=== PATIENT | female | born 1950 | race Caucasian/White ===

== ENCOUNTER → 2017-04-20 | Outpatient (CLI) | payer BC ==
[2014-04-08 10:18] VITALS: BP 104/55
[~2017-04-20] MED LIST: CALC-104 PO; CELE200C PO; CICL6.1H5 NS; CITA40TA5 PO; ERGO400T PO; ESOM40CA PO; ESZO3TAB28 PO; LUBI24CA7 PO; MONT10TA9 PO; OXYC-323 PO; PRAS25CA PO; PRAVASTATIN; PROG200C2 PO; ROPI0.5T PO; TRAZ50TA15 PO; WARF-78 PO; [UNRECOGNIZED DRUG - OTHER]
--- NOTE | 2017-04-20 14:45 | KCIC ---
Indication: Chronic sinusitis with congestion and drainage. Axial imaging through the paranasal sinuses was performed without contrast. Sagittal and coronal reformations were also performed. One or more of the following individualized dose reduction techniques were utilized for this examination: 1. Automated exposure control 2. Adjustment of the mA and/or kV according to patient size 3. Use of iterative reconstruction technique Comparison is made with prior CT from 09/06/2014. Shallow air-fluid levels are identified within bilateral maxillary sinuses. The frontal sinus is clear. The ethmoid air cells and sphenoid sinus are clear. The mastoids are well aerated. The ostiomeatal units are patent bilaterally. No significant nasal septal deviation is seen. IMPRESSION: There are shallow air-fluid levels within bilateral maxillary sinuses, perhaps owing to sinusitis. No other abnormality is seen. Electronically signed by: Vic Valente MD (04/20/2017 2:42 PM) [id number]
== END | disposition home or self-care (01) ==
LOC: KCIC CT 12:32
PROVIDERS: ATTEND Allergy & Immunology
DX: J32.9 Chronic sinusitis, unspecified (principal)
CPT/HCPCS: 70486

== ENCOUNTER → 2018-10-01 | Outpatient (CLI) | payer MEDICARE, BC ==
[2014-04-08 10:18] VITALS: BP 104/55
[~2018-10-01] MED LIST changes: -OXYC-323 PO; +OXYC1TAB15 PO; +TRAZ-118 PO; -TRAZ50TA15 PO
--- NOTE | 2018-10-01 16:43 | KCIC ---
Examination: CT sinuses noncontrast History: Chronic sinusitis Exposure: One or more of the following individualized dose reduction techniques were utilized for this examination: 1. Automated exposure control 2. Adjustment of the mA and/or kV according to patient size 3. Use of iterative reconstruction technique Technique: Noncontrast coronal images of the sinuses were obtained. Coronal and sagittal reformats are performed. Findings: Small air-fluid levels identified in the bilateral maxillary sinuses but The nasal cavity is unremarkable. The visualized frontal sinuses, bilateral ethmoidal sinuses, right sphenoid sinus and the mastoid air cells are clear. There is minimal mucosal thickening of the left sphenoid sinus Moderate degenerative changes right temporomandibular joint. IMPRESSION: Small fluid levels identified in the bilateral maxillary sinuses likely mild sinus disease. . Electronically signed by: Matt James MD (10/01/2018 4:40 PM) [place] [id number]
== END | disposition home or self-care (01) ==
LOC: KCIC CT 11:02
PROVIDERS: ATTEND Allergy & Immunology
DX: J32.9 Chronic sinusitis, unspecified (principal); M26.69 Other specified disorders of temporomandibular joint; J45.909 Unspecified asthma, uncomplicated; Z87.891 Personal history of nicotine dependence
CPT/HCPCS: 70486